=== PATIENT | male | born 1970 | race Two or more races ===

== ENCOUNTER 2022-07-09 20:45 | Inpatient (IN) | payer MEDICAID, OTHER ==
[~2022-07-09] VITALS: Ht 165.1 cm; Wt 52.2 kg
[2022-07-09 21:56] LABS: BASOPHILS % (AUTO) 0.3 % (0.0-2.0); EOSINOPHILS % (AUTO) 0.3 % (1.0-6.0); HEMATOCRIT 45.8 % (41-53); HEMOGLOBIN 15.3 g/dL (13.5-17.5); LYMPHOCYTES # (AUTO) 0.8 K/uL (1.0-4.8); LYMPHOCYTES % (AUTO) 7.5 % (22.0-44.0); MEAN CORPUSCULAR HEMOGLOBIN 31.1 pg (26.0-34.0); MEAN CORPUSCULAR HGB CONC 33.4 G/dL (31.0-37.0); MEAN CORPUSCULAR VOLUME 93 fL (80-100); MONOCYTES # (AUTO) 0.6 K/uL (0.1-1.0); MONOCYTES % (AUTO) 5.1 % (2.0-9.0); NEUTROPHILS # (AUTO) 9.8 K/uL (1.8-7.7); PLATELET COUNT (AUTO) 309 K/uL (150-450); RED BLOOD CELL COUNT(AUTO) 4.92 MIL/uL (4.50-5.90); RED CELL DISTRIBUTION WIDTH 13.1 % (11.5-14.5)
[2022-07-09 22:00] LABS: NEUTROPHILS % (AUTO) 86.8 % (40.0-70.0)
[2022-07-09 22:05] LABS: ANION GAP 9 mmol/L (8-16); CALCIUM, TOTAL 9.3 mg/dL (8.8-10.5); CARBON DIOXIDE 28 mmol/L (22-29); CHLORIDE 100 mmol/L (98-107); CREATININE 1.09 mg/dL (0.60-1.30); GLOMERULAR FILTR. RATE CALC > 60 mL/min (>60); GLUCOSE,RANDOM 95 mg/dL (70-110); POTASSIUM 3.9 mmol/L (3.5-5.1); SODIUM SERUM 137 mmol/L (136-145); UREA NITROGEN, BLOOD 14 mg/dL (7-18)
[2022-07-09 22:12] LABS: ALANINE AMINOTRANSFERASE 26 U/L (12-78); ALBUMIN 4.1 g/dL (3.4-5.0); ALKALINE PHOSPHATASE 82 U/L (46-116); ASPARTATE AMINOTRANSFERASE 24 U/L (15-37); BILIRUBIN,TOTAL 0.5 mg/dL (0.1-1.0)
[2022-07-09 22:14] LABS: PLATELET MORPHOLOGY COMMENT LARGE PLTS PRESENT
[2022-07-09] MEDS ORDERED: ZOLPIDEM TARTRATE 10 MG TABLET PO PRN (22:30)
[2022-07-09] MEDS ORDERED: LORazepam 2 MG TABLET PO PRN (22:30)
[2022-07-09] MEDS ORDERED: HALOPERIDOL 5 MG TABLET PO PRN (22:30)
[2022-07-09 22:39] LABS: COVID AG,FIA SOURCE NASOPHARYNGEAL
[2022-07-09 23:32] LABS: APPEARANCE,URINE HAZY (CLEAR); BILIRUBIN,URINE NEGATIVE (NEGATIVE); GLUCOSE, URINE (UA) NEGATIVE (NEGATIVE); LEUKOCYTE ESTERASE ,URINE NEGATIVE (NEGATIVE); NITRATE,URINE NEGATIVE (NEGATIVE); OCCULT BLOOD,URINE NEGATIVE (NEGATIVE); PH,URINE 5.5 (5.0-8.0); SPECIFIC GRAVITIY, URINE 1.018 (1.003-1.030); UROBILINOGEN,URINE <=1.0 mg/dL (<=1.0)
[2022-07-09 23:37] LABS: AMPHET/METH SCREEN,URINE POSITIVE (NEGATIVE); BARBITURATE SCREEN, URINE NEGATIVE (NEGATIVE); BENZODIAZEPINES SCREEN,URINE NEGATIVE (NEGATIVE); CANNABINOID SCREEN,URINE NEGATIVE (NEGATIVE); COCAINE SCREEN,URINE NEGATIVE (NEGATIVE); METHADONE SCREEN, URINE NEGATIVE (NEGATIVE); OPIATE SCREEN,URINE NEGATIVE (NEGATIVE); PHENCYCLIDINE SCREEN,URINE NEGATIVE (NEGATIVE)
[2022-07-09 23:38] LABS: PROTEIN,URINE NEGATIVE (NEGATIVE)
[2022-07-10] VITALS: BP 138/87
[2022-07-10 08:00] VITALS: BP 97/63
[2022-07-10] MEDS: NICOTINE 14 MG/24 HOUR PATCH TD SCH (08:16)
[2022-07-10] MEDS ORDERED: LOPERAMIDE HCL 2 MG CAPSULE PO PRN (10:30)
[2022-07-10] MEDS ORDERED: ACETAMINOPHEN 325 MG TABLET PO PRN (10:30)
[2022-07-10] MEDS ORDERED: MAGNESIUM HYDROXIDE SUSPENSION 30 ML UDCUP PO PRN (10:30)
[2022-07-10] MEDS ORDERED: IBUPROFEN 400 MG TABLET PO PRN (10:30)
[2022-07-10] MEDS ORDERED: DOCUSATE SODIUM 100 MG CAPSULE PO PRN (10:30)
[2022-07-10] MEDS ORDERED: CloNIDine HCL 0.1 MG TABLET PO PRN (10:30)
[2022-07-10] MEDS ORDERED: GuaiFENesin/D-METHORPHAN [SUGAR-FREE] 200-20MG/10 ML SYRUP UDCUP PO PRN (10:30)
[2022-07-10] MEDS ORDERED: NICOTINE 14 MG/24 HOUR PATCH TD PRN (10:30)
[2022-07-10] MEDS ORDERED: ALBUTEROL SULFATE HFA 90 MCG/PUFF 8 GM INHALER IH PRN (10:30)
[2022-07-10] MEDS ORDERED: PETROLATUM,WHITE 28 GM JELLY TP PRN (10:30)
[2022-07-10] MEDS ORDERED: ONDANSETRON HCL 4 MG TABLET PO PRN (10:30)
[2022-07-10] MEDS ORDERED: MAG HYDROX/AL HYDROX/SIMETH ES 30 ML SUSPENSION UDCUP PO PRN (10:30)
[2022-07-10] MEDS: RisperiDONE 2 MG TABLET PO SCH ×2 (11:58→20:53)
[2022-07-10 16:00] VITALS: BP 98/59
[2022-07-11 09:18] VITALS: BP 98/58
[2022-07-11] MEDS: RisperiDONE 2 MG TABLET PO SCH ×2 (09:19→20:40)
[2022-07-11] MEDS: NICOTINE 14 MG/24 HOUR PATCH TD SCH (09:20)
[2022-07-11 16:41] VITALS: BP 106/64
[2022-07-12] MEDS: RisperiDONE 2 MG TABLET PO SCH ×2 (08:10→20:22)
[2022-07-12] MEDS: NICOTINE 14 MG/24 HOUR PATCH TD SCH (08:12)
[2022-07-12 08:30] VITALS: BP 116/70
[2022-07-12 16:05] VITALS: BP 97/71
[2022-07-12 21:04] VITALS: BP 129/76
[2022-07-13 08:00] VITALS: BP 96/55
[2022-07-13] MEDS: RisperiDONE 2 MG TABLET PO SCH (08:11)
[2022-07-13] MEDS: NICOTINE 14 MG/24 HOUR PATCH TD SCH (08:11)
[2022-07-13] MEDS ORDERED: RISP2TAB86 PO (15:26)
== END 2022-07-13 11:15 | disposition home or self-care (01) | DRG 750 ==
LOC: EMS 20:46 → 3EI 23:43
PROVIDERS: ADMIT Psychiatry & Neurology Child & Adolescent Psychiatry; ATTEND Psychiatry & Neurology Child & Adolescent Psychiatry
DX: F20.9 Schizophrenia, unspecified (principal); R45.851 Suicidal ideations; Z91.14 Patient's other noncompliance with medication regimen; F15.10 Other stimulant abuse, uncomplicated; F14.90 Cocaine use, unspecified, uncomplicated; D72.829 Elevated white blood cell count, unspecified; F41.9 Anxiety disorder, unspecified; Z20.822 Contact with and (suspected) exposure to COVID-19; G47.00 Insomnia, unspecified; Z87.891 Personal history of nicotine dependence; Z79.899 Other long term (current) drug therapy
CPT/HCPCS: 80053; 80307; 81003; 85025; 99285; G0480